=== PATIENT | male | born 1955 | race African-American/Black ===

== ENCOUNTER 2017-02-17 12:29 | Outpatient (CLI) ==
--- NOTE | 2017-02-17 12:50 | DI ---
EXAM: Three views of the right hand. History: Right hand pain and trauma. Comparison: None available. Findings: Moderately displaced oblique fracture through the fifth metacarpal shaft with about 1 cm of shortening. There is early callus formation. Chondrocalcinosis within the triangular fibrocarti josue. Impression: 1. Moderately displaced subacute appearing fracture of the fifth metacarpal shaft. 2. Chondrocalcinosis.
== END 2017-02-17 12:30 | disposition home or self-care (01) ==
LOC: RAD 12:29
PROVIDERS: ATTEND Family Medicine
DX: M79.643 Pain in unspecified hand (principal)

== ENCOUNTER 2017-05-17 08:19 | Outpatient (CLI) ==
[2017-05-17 08:56] LABS: CREATININE 0.82 mg/dL (0.60-1.10)
--- NOTE | 2017-05-17 09:58 | CT ---
EXAM: CT of the soft tissue neck with contrast History: Oral mass, cervical lymphadenopathy. Comparison: None available. Technique: Multiplanar CT images through the soft tissue neck were obtained following administration of IV contrast Findings: No acute findings seen within the visualized brain. The visualized orbits are intact. No parotid inflammation and no parotid masses. The right submandibular gland is larger than the left b ut there is no inflammation surrounding the submandibular glands. No discrete thyroid nodules identi fied by CT. Emphysema seen within the visualized upper lungs. Mild biapical lung scarring. Thick ossification involving the anterior longitudinal ligament of the cervical spine and upper thoracic sp ine. Epiglottis is not thickened. No peritonsillar inflammation. No air-fluid levels seen within t he sinuses or mastoid air cells. There are multiple complex solid and cystic masses within the left neck cervical chain region with the largest measuring 2.6 cm x 2.0 cm in the jugular digastric region . Left posterior triangle, mass measures 1.9 cm x 1.6 cm. There are borderline enlarged lymph nodes within the left supraclavicular region. Impression: 1. Multiple left neck masses, suspicious for malignancy. Infectious etiology is also a possibility. Further evaluation is recommended. 2. Other findings as detailed above.
== END 2017-05-17 08:20 | disposition home or self-care (01) ==
LOC: RAD 08:19
PROVIDERS: ATTEND Family Medicine
DX: K02.9 Dental caries, unspecified (principal); R22.0 Localized swelling, mass and lump, head; R59.0 Localized enlarged lymph nodes
CPT/HCPCS: 36415; 82565

== ENCOUNTER 2017-12-19 11:59 | Emergency (ER) ==
[2017-12-19 12:06] VITALS: BP 99/62; TEMP 97.4; BMI 16.7
--- NOTE | 2017-12-19 12:45 | DI ---
EXAM: KUB HISTORY: Tube placement check. FINDINGS / IMPRESSION: There is a catheter seen extending to coil over the mid upper abdomen and ending just to the right of the spine at this level. Apparent contrast injection through the tube opacifies the regional small bowel loops with no obvious extravasation.
--- NOTE | 2017-12-19 13:24 | ED.PDOC ---
General ED Provider: Dr. MARY ADEN Chief Complaint: Non-specific Complaint Stated Complaint: PT THINKS HIS feeding tube is out Time Seen by Physician: 12:00 (in no pain) Mode of Arrival: Wheelchair Information Source: Patient Exam Limitations: No limitations Primary Care Provider: ZE MOORE Nursing and Triage Documentation Reviewed and Agree: Yes Reviewed sepsis parameters & appropriate labs ordered?: Yes System Inflammatory Response Syndrome: Not Applicable Sepsis Protocol: For patient's 13 years and over: Temp is 96.8 and below OR 101 and greater Pulse >90 BPM Resp >20/minute Acutely Altered Mental Status Are patient's symptoms suggestive of a new infection, such as: -Pneumonia -Skin, Soft Tissue -Endocarditis -UTI -Bone, Joint Infection -Implantable Device -Acute Abdominal Infection -Wound Infection -Meningitis -Blood Stream Catheter Infection -Unknown System Inflammatory Response Syndrome: Not Applicable Miscellaneous Complaint Exam - Complex/Multi-System Complaint/Exam Onset/Duration: today Symptoms Are: Still present Initial Severity: Mild Current Severity: None Associated Signs and Symptoms: Denies: Decreased responsiveness, Confusion, Agitation, Dizziness, Weakness, Syncope, Headache, Short of air, Cough, Wheezing , Hemoptysis, Chest pain, Palpitations, Edema, Nausea, Vomiting, Diarrhea, Abdominal pain, Back pain, Dysuria, Hematemesis, Melena, Decreased oral intake, Fever, Diaphoresis, Immunocompromised, Anticoagulation Therapy, Recent medication changes, Indwelling medical scribe, Prior MRSA, Prior VRE, Recent trauma, Remote trauma Recent Echo/LV Function: No Respiratory Distress: None Abdominal Findings: Present: Normal findings Glascow Coma Scale (see protocol): 15 Focal Weakness: Present: None Focal Sensory Loss: Present: None Review of Systems - Review Of Systems Constitutional: Reports: No symptoms Eyes: Reports: No symptoms Ears, Nose, Mouth, Throat: Reports: No symptoms Respiratory: Reports: No symptoms Cardiac: Reports: No symptoms GI: Reports: No symptoms : Reports: No symptoms Musculoskeletal: Reports: No symptoms Skin: Reports: No symptoms Neurological: Reports: No symptoms Endocrine: Reports: No symptoms Hematologic/Lymphatic: Reports: No symptoms All Other Systems: Reviewed and Negative Past Medical History - Past Medical History Previously Healthy: Yes Endocrine: Reports: None Cardiovascular: Reports: None Respiratory: Reports: None Hematological: Reports: None Gastrointestinal: Reports: None Genitourinary: Reports: None Neuro/Psych: Reports: None Musculoskeletal: Reports: None Cancer: Reports: None - Surgical History General Surgical History: Reports: None - Family History Family History: Reports: None - Social History Smoking Status: Former smoker Hx Substance Use: No Alcohol Screening: Occasionally Physical Exam - Physical Exam Appearance: Well-appearing, No pain distress, Well-nourished Eyes: ABDULKADIR, EOMI, Conjunctiva clear ENT: Ears normal, Nose normal, Oropharynx normal Respiratory: Airway patent, Breath sounds clear, Breath sounds equal, Respirations nonlabored Cardiovascular: RRR, Pulses normal, No rub, No murmur GI/: Soft, Nontender, No masses, Bowel sounds normal, No Organomegaly Musculoskeletal: Normal strength, ROM intact, No edema, No calf tenderness Skin: Warm, Dry, Normal color Neurological: Sensation intact, Motor intact, Reflexes intact, Cranial nerves intact, Alert, Oriented Psychiatric: Affect appropriate, Mood appropriate Critical Care Note - Critical Care Note Total Time (mins): 0 Course - Course Orders, Labs, Meds: Orders Category Date Time Status KUB Stat RADS 12/19/17 12:19 Completed Vital Signs: Temp Pulse Resp BP Pulse Ox 12/19/17 12:00 97.4 F L 76 20 99/62 98 Departure - Departure Time of Disposition: 13:24 (discussed the film with the family. tube is in place ) Disposition: HOME SELF-CARE Discharge Problem: Feeding tube dysfunction Qualifiers: Encounter type: initial encounter Qualified Code(s): T85.598A - Other mechanical complication of other gastrointestinal prosthetic devices, implants and grafts, initial encounter Instructions: Tube Feeding (DC), How to Use and Care for Your PEG Tube (ED) Condition: Good Pt referred to PMD for follow-up: Yes IPMP verified?: No Additional Instructions: Please call your Family Physician as soon as possible to schedule a follow-up appointment. Allergies/Adverse Reactions: Allergies baclofen Allergy (Intermediate, Verified 12/19/17 12:06) HTN Home Medications: Ambulatory Orders Xalatan 2.5 ml OP BEDTIME 02/27/15 Benzonatate 200 mg PO TID PRN 12/19/17 Cyclobenzaprine HCl 10 mg PO BEDTIME 12/19/17 Dorzolamide HCl [Trusopt] 1 drop OP BID 12/19/17 Fentanyl 1 each TD PRN PRN 12/19/17 Guaifenesin 100 mg PO PRN PRN 12/19/17 Hydrocortisone [Hydrocortisone 1% Cream] 1 applic TP PRN PRN 12/19/17 Lidocaine HCl [Lidocaine Viscous 2% 100 ml] 5 ml PO PRN PRN 12/19/17 Oxycodone HCl [Oxycodone] 5 mg PO Q4H PRN 12/19/17 Ranitidine HCl [Zantac] 150 mg PO QDAC PRN 12/19/17 Ropinirole HCl [Requip] 1 mg PO BEDTIME PRN 12/19/17 Scopolamine 1 each TD PRN PRN 12/19/17 Timolol Maleate 0.5% [Timoptic 0.5% Opth] 1 drop OP BID 12/19/17
[2017-12-19] MEDS ORDERED: LIDOCAINE HCL 1% SDV ONE (13:51)
[2017-12-19] MEDS ORDERED: LIDOCAINE HCL 1% SDV SUBCUT STA (14:15)
== END 2017-12-19 14:17 | disposition home or self-care (01) ==
LOC: ED 11:59
DX: Z43.1 Encounter for attention to gastrostomy (principal)
CPT/HCPCS: 99283

== ENCOUNTER 2017-12-21 13:16 | Outpatient (CLI) ==
[2017-12-21 13:36] VITALS: BP 113/66; TEMP 97.2
[2017-12-21] MEDS ORDERED: SALINE FLUSH (PORT ACCESS TRAY USE ONLY) IVF ONE (13:42)
[2017-12-21] MEDS ORDERED: HEPARIN 500 UNIT/5 ML (PORT ACCESS TRAY ONLY) IVF ONE (13:42)
== END 2017-12-21 13:17 | disposition home or self-care (01) ==
LOC: OPMED 13:16
PROVIDERS: ATTEND Family Medicine
DX: E46 Unspecified protein-calorie malnutrition (principal); Z78.9 Other specified health status; Z45.2 Encounter for adjustment and management of vascular access device
CPT/HCPCS: 96523

== ENCOUNTER 2017-12-29 13:00 | Outpatient (RCR) ==
--- NOTE | 2017-12-22 08:35 | RS.OPPTEV2 ---
Date of Note: 12/21/17 Visit #: 1 Date of Evaluation: 12/21/17 Payer Source: Medicaid Surgery Performed?: No Treatment Diagnosis: gait difficulty, muscle weakness, decreased balance History of Condition/Mechanism of Injury:: pt with hx of oral cancer s/p reconstructive surgery in 06/2017 pt has been experiencing malnutrition and is using j tube to supplement nutrition. Sister reports pt has become weaker and having more difficult time getting around. Prior Level of Function.....Patient was independent with: ADL's, Self Care, Ambulation/Mobility Level of Function: pt lives alone in apt with no steps to enter. pt amb with cane independently short distances, pt independent with bathing and dressing, sister assists with meals as well as transportation. Functional Limitations: ADL's, Standing, Bending, Squatting, Ambulation, Community Access/Integration Current Subjective/complaints:: pt states he just feels like he is getting a little weaker. Treatment Side (optional): N/A *Precautions: fall precautions Medical History Medical History: Hypertension, Arthritis, Cancer (oral cancer) Medical History Comments:: Head injury 2009 Surgical History Comments:: knee surgery 1978 Smoking Status: Current some day smoker Hx Home Medications: benzonate, cyclobenzaprine, dorzolamide, fentanyl, guanfacine, jevity, latanoprost, oxycodone, ranitidine, ropinirole, scopolamine , timolol Patient's Goals: get stronger Functional Outcome Measure Tinetti: 13 (54%) - G Codes & Severity Modifier G Codes & Modifier: n/a Source of G Code score: n/a Observation - Observation Posture: Forward Head, Rounded Shoulders, Increased Thoracic Kyphosis Handedness: Right Gait - Gait Pattern General Gait Pattern Observation: Crouched Gait, Short Stance Time (R), Decrease Stride Lngth (R) Gait Comments: pt amb with flexed R knee due to decreased ext, as well as decreased heel strike/toe off General Range of Motion: BUE WFL's. RLE hip WFL's, knee flex 100 ext -20 ankle WFL's. LLE WFL's Muscle Strength: BUE 4/5. RLE hip flex 4-/5, knee flex/ext 4/5, ankle DF/PF 4/ 5. LLE hip flex 4/5, knee flex/ext 4+/5, ankle DF/PF 5/5 Palpation Comments:: pt with significant tightness in R IT band and B hamstrings R worse than L Sensation - Sensation Right Upper Extremity: Intact/Normal Left Upper Extremity: Intact/Normal Right Lower Extremity: Impaired Left Lower Extremity: Intact/Normal (n/t RLE) Balance - Sitting Balance Static Sitting Balance: Good Dynamic Sitting Balance: Fair - Standing Balance Static Standing Balance: Fair Dynamic Standing Balance: Poor - Comments Balance Assessment Comments: tinetti score /28. 30 sec sit to/from stand test = 6 in 30 secs Interventions - Exercise/Activities/Manual Therapy Exercises/Activities: pt performed isometric hip add, bridging, hip abd with red t band, x 5 reps each. Manual Therapy: n/a HOME EXERCISE PROGRAM: pt given written HEP and instructed in AP, LAQ, seated hip flex, isometric hip add - Charges Timed Code Treatment Minutes: 48 Total Treatment Time: 55 Procedures billed for this date of service:: eval med EVALUATION COMPLEXITY LEVEL EVALUATION COMPLEXITY LEVEL: HISTORY: Medium (prev head injury, CA, HTN, ), EXAM OF BODY SYSTEMS: Medium (balance, strength, ROM, gait, posture), CLINICAL PRESENTATION: Medium (evolving), CLINICAL DECISION MAKING: Medium Assessment Assessment: pt presents with decreased balance as well as decreased ROM R knee, decreased strength and gait safety. Feel pt would benefit from PT for therex for strength/balance as well as gait training to improve functional mobility and decrease risk of falls. Patient Education: Home Exercise Program, Education of Plan of Care Rehab Potential: Good Short Term Goals Goal #1: pt demonstrate improved ROM R knee ext -15 Goal to be met by: 01/04/18 Progress towards Goal:: Met Goal #2: Decreased hamstring and IT band tightness on RLE Goal to be met by: 01/04/18 Goal #3: pt amb in dept with cane with improved gait pattern with no LOB Goal to be met by: 01/04/18 Goal #4: Improve tinetti score Goal to be met by: 01/04/18 Kiln Loader Goals Goal #1: pt independent with HEP, Improve strength BLE 4 to 4+/5 Goal to be met by: 01/20/18 Goal #2: pt amb from dept to lobby with cane with no LOB Goal to be met by: 01/20/18 Goal #3: Increase R knee ext -10 Goal to be met by: 01/20/18 Goal #4: Improve dyn stand balance as noted by tinetti score Goal to be met by: 01/20/18 Plan - Treatment to be Provided Procedures: Therapeutic Exercises, Therapeutic Activity, Gait Training, Neuromuscular Rehab, Manual Therapy, Patient Education Modalities: No Modalities - Treatment Plan Frequency: 2 X week Duration: 4 weeks ORDER # VISITS AND/OR THROUGH DATE: 01/20/18 - Treatment Code (1) Gait difficulty Code(s): R26.9 - UNSPECIFIED ABNORMALITIES OF GAIT AND MOBILITY (2) Muscle weakness Code(s): M62.81 - MUSCLE WEAKNESS (GENERALIZED) (3) Joint stiffness Code(s): M25.60 - STIFFNESS OF UNSPECIFIED JOINT, NOT ELSEWHERE CLASSIFIED
--- NOTE | 2017-12-26 13:09 | RS.CXNS ---
Date of scheduled appointment: 12/26/17 Type: Cancel Reason for Cancel/NS: Patient sick per sister
--- NOTE | 2017-12-29 15:30 | RS.OPPTDN ---
Subjective Date of Note: 12/29/17 Visit #: 2 Date of Evaluation: 12/21/17 Payer Source: Medicaid Treatment Diagnosis: gait difficulty, muscle weakness, decreased balance Current Subjective/complaints:: Patient says he has started trying some of his HEP. Reports his L leg is sore and tight. States he was able to walk to our dept with his SC ~75'. *Precautions: fall precautions Interventions - Exercise/Activities/Manual Therapy Exercises/Activities: Patient receives passive stretching to bilateral LE's: Piriformis, Fig 4, lower Trunk rotation, and HS. Patient performs: QS, SAQ 1# , DF red tband, hip abd in hooklying red tband, Ball squeezes, isometric hip abd /flexion x 10 each. Sitting: LAQ, heel/toe raises x 10. Total minutes of Exercise: 38 Manual Therapy: n/a HOME EXERCISE PROGRAM: pt given written HEP and instructed in AP, LAQ, seated hip flex, isometric hip add - Charges Timed Code Treatment Minutes: 38 Total Treatment Time: 38 Procedures billed for this date of service:: ex3 Assessment: Patient presents to dept with SC on the R side amb ~75 ft with sister at side. Patient demo tight R HS compared to L and appears to julio cesar all stretching and general strengthening well. He should benefit from further therex to work towards standing/bal exercises assisting with gait. Patient Education: Education of diagnosis, Home Exercise Program, Home Safety, Education of Plan of Care Short Term Goals Goal #1: pt demonstrate improved ROM R knee ext -15 Goal to be met by: 01/04/18 Progress towards Goal:: Met Goal #2: Decreased hamstring and IT band tightness on RLE Goal to be met by: 01/04/18 Goal #3: pt amb in dept with cane with improved gait pattern with no LOB Goal to be met by: 01/04/18 Goal #4: Improve tinetti score Goal to be met by: 01/04/18 Commercial Attache Goals Goal #1: pt independent with HEP, Improve strength BLE 4 to 4+/5 Goal to be met by: 01/20/18 Goal #2: pt amb from dept to lobby with cane with no LOB Goal to be met by: 01/20/18 Goal #3: Increase R knee ext -10 Goal to be met by: 01/20/18 Goal #4: Improve dyn stand balance as noted by tinetti score Goal to be met by: 01/20/18 Plan PLAN OF CARE EXPIRES ON:: 01/20/18 ORDER # VISITS AND/OR THROUGH DATE: 01/20/18 PLAN: continue to progress therex
== END 2018-01-02 23:59 ==
PROVIDERS: ATTEND Family Medicine
DX: R26.9 Unspecified abnormalities of gait and mobility (principal); E46 Unspecified protein-calorie malnutrition; Z78.9 Other specified health status; M62.81 Muscle weakness (generalized); M25.60 Stiffness of unspecified joint, not elsewhere classified; Z45.2 Encounter for adjustment and management of vascular access device
CPT/HCPCS: 96523

== ENCOUNTER 2018-04-26 13:54 | Emergency (ER) ==
[2018-04-26 14:33] VITALS: BMI 18.1
--- NOTE | 2018-04-26 15:25 | ED.PDOC ---
General ED Provider: Dr. MARY ADEN Chief Complaint: GI Bleed Stated Complaint: upper GI Bleed Time Seen by Physician: 14:00 (seen with pt's nurse at all ti,es has G tube contains dark feeding material) Mode of Arrival: Walk-In Information Source: Patient, Family Exam Limitations: No limitations (the tube has been in place in excess of 6 months pt is in between changing of M.D.) Primary Care Provider: ZE MOORE Referred to ED by: Other (PT STATED HE HAS BEEN TAKING MOTRIN INTERMITTENTLY) Nursing and Triage Documentation Reviewed and Agree: Yes Does patient meet sepsis criteria?: No System Inflammatory Response Syndrome: Not Applicable Sepsis Protocol: For patient's 13 years and over: Temp is 96.8 and below OR 101 and greater Pulse >90 BPM Resp >20/minute Acutely Altered Mental Status Are patient's symptoms suggestive of a new infection, such as: -Pneumonia -Skin, Soft Tissue -Endocarditis -UTI -Bone, Joint Infection -Implantable Device -Acute Abdominal Infection -Wound Infection -Meningitis -Blood Stream Catheter Infection -Unknown GI Complaint Exam - Abdominal Pain Complaint/Exam Onset: Gradual Duration: 1 WEEK has noticed that his peg tube has dark material in it Symptoms Are: Still present Timing: Intermittent Initial Severity: Mild Current Severity: Mild Location of Pain: Epigastric Character: Reports: Dull, Aching Aggravating: Reports: None Alleviating: Reports: None Associated Signs and Symptoms: Denies: Diaphoresis, Fever, Cough, Chest pain, Dizziness, Back pain, Constipation, Blood in stool, Dysuria, Urinary frequency, Decreased urine output, Decreased appetite, Discharge, Nausea, Vomiting, Diarrhea, Decreased activity AAA Risk Factors: Reports: Smoking Cardiac Risk Factors: Reports: Smoking. 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 Quality Indicators for Cardiac Chest Pain: EKG in 10min. Quality Indicator For Non-Traumatic Chest Pain/Syncope: EKG Performed Review of Systems - Review Of Systems Constitutional: Reports: Malaise, Weakness Eyes: Reports: No symptoms Ears, Nose, Mouth, Throat: Reports: No symptoms Respiratory: Reports: Cough Cardiac: Reports: No symptoms GI: Reports: Abdominal pain, Other : Reports: No symptoms Musculoskeletal: Reports: No symptoms Skin: Reports: No symptoms Neurological: Reports: No symptoms Endocrine: Reports: No symptoms Hematologic/Lymphatic: Reports: No symptoms All Other Systems: Reviewed and Negative Past Medical History - Past Medical History Previously Healthy: Yes Endocrine: Reports: None Cardiovascular: Reports: None Respiratory: Reports: None Hematological: Reports: None Gastrointestinal: Reports: None Genitourinary: Reports: None Neuro/Psych: Reports: None Musculoskeletal: Reports: None Cancer: Reports: Other (MOUTH HAD SURGERY AT [facility] [address] OF [place] 3 TIME /DAILY). Denies: Lung, Colon - Surgical History General Surgical History: Reports: None, Orthopedic (BILATERAL KNEES 30 YEARS AGO) - Family History Family History: Reports: None - Social History Smoking Status: Former smoker Hx Substance Use: No Alcohol Screening: Occasionally Physical Exam - Physical Exam Appearance: Well-appearing, Thin Eyes: ABDULKADIR, EOMI, Conjunctiva clear ENT: Ears normal, Nose normal, Oropharynx normal Respiratory: Airway patent, Breath sounds clear, Breath sounds equal, Respirations nonlabored Cardiovascular: RRR, Pulses normal, No rub, No murmur GI/: Soft, Nontender, No masses, Bowel sounds normal, No Organomegaly Musculoskeletal: Normal strength, ROM intact, No edema, No calf tenderness Skin: Warm, Dry, Normal color Neurological: Sensation intact, Motor intact, Reflexes intact, Cranial nerves intact, Alert, Oriented Psychiatric: Affect appropriate, Mood appropriate Interpretation - Radiology Interpretation Radiology Interpretation By: Radiologist Radiology Results: No acute changes Exam Interpreted: CT Scan - Trainmaster Rate: Normal Rhythm: Sinus Ectopy: None - EKG Interpretation Rate: Normal Rhythm: Sinus Ectopy: None [place]: NL ST Segment: Normal Re-Evaluation - Re-Evaluation Time of Re-Evaluation: 15:00 (NO ACTIVE BLEEDING) Status: Improved Vital Signs Stable: Yes Pain Level: 0 Appearance: NAD Lungs: Clear Skin: Warm and Dry Neuro: Alert and Oriented X3 CV: RRR - Re-Evaluation Time of Re-Evaluation: 17:00 (NO ACTIVE BLEEDING) Status: Unchanged, Improved Vital Signs Stable: Yes Pain Level: 0 Appearance: NAD Skin: Warm and Dry Neuro: Alert and Oriented X3 CV: RRR Physician Notification - Case Discussed Physician Notified: HOSPITALIST AT [facility] (CHAITANYA Delgado) Time of Notification: 17:09 (TRANSFER ) Critical Care Note - Critical Care Note Total Time (mins): 0 Course - Course Hematology/Chemistry: 04/26/18 14:55 04/26/18 14:55 Orders, Labs, Meds: Lab Review 04/26/18 04/26/18 04/26/18 14:55 14:55 14:55 WBC 7.22 RBC 2.16 L Hgb 5.6 L* Hct 17.7 L* MCV 81.9 MCH 25.9 L MCHC 31.6 L RDW Coeff of Jarvis 17.0 H Plt Count 243 Immature Gran % (Auto) 1.1 Neut % (Auto) 70.6 Lymph % (Auto) 15.1 Will % (Auto) 9.8 Eos % (Auto) 3.3 Baso % (Auto) 0.1 Immature Gran # (Auto) 0.1 Neut # (Auto) 5.1 Lymph # (Auto) 1.1 Will # (Auto) 0.7 Eos # (Auto) 0.2 Baso # (Auto) 0.0 PT 9.3 INR 0.93 APTT 23.9 Sodium 136 Potassium 4.1 Chloride 101 Carbon Dioxide 26 Anion Gap 13.1 BUN 12 Creatinine 0.69 Estimated GFR (MDRD) 141.00 BUN/Creatinine Ratio 17.39 Glucose 98 Lactic Acid Calcium 9.5 Total Bilirubin 0.3 AST 19 ALT 11 L Alkaline Phosphatase 59 Total Creatine Kinase 105 Troponin I < 0.0100 Total Protein 6.9 Albumin 3.0 L Globulin 3.9 Albumin/Globulin Ratio 0.77 Procalcitonin Blood Type Antibody Screen Crossmatch ([facility]) 04/26/18 04/26/18 04/26/18 14:55 14:55 16:25 WBC RBC Hgb Hct MCV MCH MCHC RDW Coeff of Jarvis Plt Count Immature Gran % (Auto) Neut % (Auto) Lymph % (Auto) Will % (Auto) Eos % (Auto) Baso % (Auto) Immature Gran # (Auto) Neut # (Auto) Lymph # (Auto) Will # (Auto) Eos # (Auto) Baso # (Auto) PT INR APTT Sodium Potassium Chloride Carbon Dioxide Anion Gap BUN Creatinine Estimated GFR (MDRD) BUN/Creatinine Ratio Glucose Lactic Acid 7.6 Calcium Total Bilirubin AST ALT Alkaline Phosphatase Total Creatine Kinase Troponin I Total Protein Albumin Globulin Albumin/Globulin Ratio Procalcitonin 0.08 Blood Type A POSITIVE Antibody Screen Crossmatch ([facility]) 04/26/18 16:25 WBC RBC Hgb Hct MCV MCH MCHC RDW Coeff of Jarvis Plt Count Immature Gran % (Auto) Neut % (Auto) Lymph % (Auto) Will % (Auto) Eos % (Auto) Baso % (Auto) Immature Gran # (Auto) Neut # (Auto) Lymph # (Auto) Will # (Auto) Eos # (Auto) Baso # (Auto) PT INR APTT Sodium Potassium Chloride Carbon Dioxide Anion Gap BUN Creatinine Estimated GFR (MDRD) BUN/Creatinine Ratio Glucose Lactic Acid Calcium Total Bilirubin AST ALT Alkaline Phosphatase Total Creatine Kinase Troponin I Total Protein Albumin Globulin Albumin/Globulin Ratio Procalcitonin Blood Type A POSITIVE Antibody Screen Pending Crossmatch ([facility]) See Detail Orders Category Date Time Status EKG-(ED ONLY) Stat CARDIO 04/26/18 14:48 Ordered ED IV/MEDIPORT/POWERPORT .ONCE EMERGENCY 04/26/18 16:06 Active BLOOD CULTURE Stat LAB 04/26/18 15:58 Received CBC W/ AUTO DIFF Stat LAB 04/26/18 14:55 Results COMPREHENSIVE METABOLIC PANEL Stat LAB 04/26/18 14:55 Completed CREATINE KINASE Stat LAB 04/26/18 14:55 Completed CULTURE WOUND [WOUND CULTURE] Stat LAB 04/26/18 14:50 Received LACTIC ACID Stat LAB 04/26/18 16:25 Completed PARTIAL THROMBOPLASTIN TIME Stat LAB 04/26/18 14:55 Completed PROCALCITONIN Stat LAB 04/26/18 14:55 Completed PT WITH INR Stat LAB 04/26/18 14:55 Completed Packed Red Blood Cells [PACKED CELLS] Stat LAB 04/26/18 16:25 Results TROPONIN I Stat LAB 04/26/18 14:55 Completed TYPE AND SCREEN Stat LAB 04/26/18 16:25 Results 0.9 % Sodium Chloride [Saline Flush] MEDS 04/26/18 16:05 Active 1 syr IVF PRN PRN Ceftriaxone Sodium [Rocephin] MEDS 04/26/18 15:57 Discontinued 1 gm IM ONCE STA Lidocaine HCl/Pf [Lidocaine HCl 1% Sdv] MEDS 04/26/18 15:57 Discontinued 2.1 ml IM ONCE STA CT ABDOMEN/PELVIS WO CONTRAST Stat RADS 04/26/18 14:43 Completed Medications Generic Name Dose Route Start Last Admin Trade Name Freq PRN Reason Stop Dose Admin Sodium Chloride 1 syr 04/26/18 16:05 Saline Flush IVF PRN PRN To flush IV Discontinued Medications Generic Name Dose Route Start Last Admin Trade Name Freq PRN Reason Stop Dose Admin Ceftriaxone Sodium 1 gm 04/26/18 15:57 Rocephin IM 04/26/18 15:58 ONCE STA Lidocaine HCl 2.1 ml 04/26/18 15:57 Lidocaine Hcl 1% Sdv IM 04/26/18 15:58 ONCE STA Vital Signs: Temp Pulse Resp BP Pulse Ox 04/26/18 13:55 98.1 F 102 H 20 106/59 L 96 Departure - Departure Time of Disposition: 17:09 Disposition: TSF SHORT-TRM HOSP Discharge Problem: Gastrointestinal hemorrhage Abdominal pain Qualifiers: Abdominal location: epigastric Qualified Code(s): R10.13 - Epigastric pain Bilateral pneumonia Qualifiers: Pneumonia type: due to unspecified organism Lung location: unspecified part of lung Qualified Code(s): J18.9 - Pneumonia, unspecified organism Instructions: Gastrointestinal Bleeding (ED), Chronic Abdominal Pain (ED) Condition: Good Pt referred to PMD for follow-up: Yes IPMP verified?: No Additional Instructions: Please call your Family Physician as soon as possible to schedule a follow-up appointment. Allergies/Adverse Reactions: Allergies baclofen Allergy (Intermediate, Verified 04/26/18 14:10) HTN Home Medications: Ambulatory Orders Xalatan 2.5 ml OP BEDTIME 02/27/15 Benzonatate 200 mg PO TID PRN 12/19/17 Dorzolamide HCl [Trusopt] 1 drop OP BID 12/19/17 Hydrocortisone [Hydrocortisone 1% Cream] 1 applic TP PRN PRN 12/19/17 Ranitidine HCl [Zantac] 150 mg PO QDAC PRN 12/19/17 Ropinirole HCl [Requip] 1 mg PO BEDTIME PRN 12/19/17 Timolol Maleate 0.5% [Timoptic 0.5% Opth] 1 drop OP BID 12/19/17 Oxycodone HCl 5 - 10 mg PO Q4HR PRN 04/26/18 Transfer Form Completed: Yes Disposition Discussed With: Patient, Family
--- NOTE | 2018-04-26 15:35 | CT ---
EXAM: CT of the abdomen pelvis without contrast History: Abdominal pain, bleeding from G tube. Technique: Multiplanar CT images through the abdomen pelvis were obtained without the administration of IV contrast Findings: Bibasilar lung infiltrates. No acute osseous abnormalities. The intraventricular septum o f the heart is visible suggesting anemia. IVC filter. No discrete gallstones identified by CT. No focal liver or splenic lesions. No renal s tones and no hydronephrosis. Moderate to large amount colonic stool. No karley peripancreatic inflam mation. Adrenal glands are unremarkable. Gastrostomy tube is seen in place. No dilated loops of [place]. No bladder wall thickening. Surgical clips are seen within the pelvis. No free air. No ascit es. No inflammatory stranding. Evaluation for lymph nodes is limited due to lack of contrast admini stration. Appendix is normal. Impression: 1. No definite acute intra-abdominal or pelvic process is identified within limitations of a noncont rast study. 2. G tube seen in place. No bowel obstruction. 3. [id number] amount colonic stool suggesting constipation. 4. Bibasilar pneumonia. 5. Probable anemia
[2018-04-26] MEDS ORDERED: LIDOCAINE HCL 1% SDV IM STA (15:57)
[2018-04-26] MEDS ORDERED: ROCEPHIN IM STA (15:57)
[2018-04-26 18:03] VITALS: BP 120/72; TEMP 96.6
== END 2018-04-26 20:05 | disposition short-term general hospital (02) ==
LOC: ED 13:54
DX: K92.2 Gastrointestinal hemorrhage, unspecified (principal); J18.9 Pneumonia, unspecified organism; R10.13 Epigastric pain; Z93.1 Gastrostomy status; F17.210 Nicotine dependence, cigarettes, uncomplicated
CPT/HCPCS: 36415; 36430; 80053; 82550; 83605; 84145; 84484; 85025; 85610; 85730; 86850; 86900; 86922; 87040; 87070; 93005; 93010; 96372; 99285

== ENCOUNTER 2018-04-26 20:17 | Outpatient (CLI) ==
[2018-04-26 14:33] VITALS: BMI 18.1
== END 2018-04-26 20:33 | disposition short-term general hospital (02) ==
LOC: AMBL 20:17
PROVIDERS: ATTEND Family Medicine
DX: Z43.1 Encounter for attention to gastrostomy (principal); K94.21 Gastrostomy hemorrhage; R53.1 Weakness; I10 Essential (primary) hypertension

== ENCOUNTER 2018-05-12 15:52 | Outpatient (CLI) | END 2018-05-12 16:12 | disposition short-term general hospital (02) | LOC: AMBL 15:52 | PROVIDERS: ATTEND Internal Medicine | DX: R29.810 Facial weakness (principal); R47.81 Slurred speech; R53.1 Weakness; Z86.73 Personal history of transient ischemic attack (TIA), and cerebral infarction without residual deficits; Z85.819 Personal history of malignant neoplasm of unspecified site of lip, oral cavity, and pharynx ==